=== PATIENT | male | born 1985 | race Two or more races ===

== ENCOUNTER 2018-10-01 14:49 | Emergency (ER) | payer OTHER ==
[~2018-10-01] VITALS: Ht 162.6 cm; Wt 73.0 kg
[2018-10-01] MEDS ORDERED: NEURONTIN300 MG PO (15:02)
[2018-10-01] MEDS ORDERED: PROTEINEX1 TA1 PO (15:02)
[2018-10-01] MEDS ORDERED: PNEU16DI2 IJ (15:02)
[2018-10-01] MEDS ORDERED: PNEU16DI2 (15:02)
== END 2018-10-01 17:40 | disposition home or self-care (01) ==
LOC: ER 14:49
DX: M54.5 Low back pain (principal); N48.89 Other specified disorders of penis

== ENCOUNTER 2022-07-19 19:48 | Emergency (ER) | payer OTHER ==
[~2022-07-19] VITALS: Ht 165.1 cm; Wt 77.1 kg
[~2022-07-19 19:48] MED LIST: NEURONTIN300 MG PO; PNEU16DI2; PNEU16DI2 IJ; PROTEINEX1 TA1 PO
== END 2022-07-19 20:48 | disposition home or self-care (01) ==
LOC: ER 19:48
DX: R20.2 Paresthesia of skin (principal)